=== PATIENT | male | born 2000 | race African-American/Black ===

== ENCOUNTER 2020-02-17 12:23 | Emergency (ER) | payer OTHER ==
[2020-02-17 12:29] VITALS: RESP 18
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
--- NOTE | 2020-02-17 14:34 | XR ---
EXAMINATION TYPE: XR knee complete LT DATE OF EXAM: 02/17/2020 COMPARISON: NONE HISTORY: Pain TECHNIQUE: 3 views FINDINGS: I see no fracture nor dislocation. Joint spaces are normal. There is no sign of knee joint effusion. IMPRESSION: Negative left knee exam.
--- NOTE | 2020-02-17 14:35 | XR ---
EXAMINATION TYPE: XR chest 1V DATE OF EXAM: 02/17/2020 COMPARISON: NONE HISTORY: Pain TECHNIQUE: Single view FINDINGS: Heart and mediastinum are normal. Lungs are clear. Diaphragm is normal. Bony thorax appears normal. IMPRESSION: Normal chest.
--- NOTE | 2020-02-17 14:36 | XR ---
EXAMINATION TYPE: XR pelvis AP view DATE OF EXAM: 02/17/2020 COMPARISON: NONE HISTORY: Pain TECHNIQUE: Single view FINDINGS: Pelvic ring is intact. Proximal femurs are intact. Sacroiliac joints are normal. IMPRESSION: Negative exam. No fracture.
[2020-02-17 15:22] VITALS: BP 123/73; PULSE 66; TEMP 98.6
== END 2020-02-17 15:22 | disposition home or self-care (01) ==
LOC: EC 12:23
DX: S80.02XA Contusion of left knee, initial encounter (principal); S13.9XXA Sprain of joints and ligaments of unspecified parts of neck, initial encounter; V89.2XXA Person injured in unspecified motor-vehicle accident, traffic, initial encounter; Y92.410 Unspecified street and highway as the place of occurrence of the external cause
CPT/HCPCS: 70450; 71045; 72125; 72170; 99285

== ENCOUNTER 2020-12-04 13:45 | Emergency (ER) | payer OTHER ==
[2020-12-04 13:48] VITALS: BP 130/74; PULSE 52; RESP 16; TEMP 97.7
[2020-12-04] MEDS ORDERED: ONDANSETRON 4 MG/2 ML VIAL IVP STA (14:05)
[2020-12-04] MEDS ORDERED: SODIUM CHLORIDE 0.9% 1,000 ML IV STA (14:05)
[2020-12-04] MEDS ORDERED: FAMOTIDINE 20 MG/2 ML VIAL IV STA (14:06)
--- NOTE | 2020-12-04 14:30 | ED ---
Nausea/Vomiting/Diarrhea HPI - General Chief complaint: Nausea/Vomiting/Diarrhea Stated complaint: NVD Time Seen by Provider: 12/04/20 13:50 Source: patient Mode of arrival: ambulatory Limitations: no limitations - History of Present Illness Initial comments: 20-year-old male presents to emergency department with a chief complaint of diarrhea. Patient reports this started 2 AM today. States last night he was out with a group of friends in a restaurant eating food that was not thoroughly cooked, particularly me. Patient reports he is reporting semi-formed stools, nonbloody. He denies any nausea or vomiting. Denies any abdominal pain. Denies any obstructive or infectious urinary symptoms. Denies any fevers or chills. States nobody else in the upper friends got sick yet. No recent antibodies. Diarrhea does not have a significantly foul smell. - Related Data Previous Rx's Medication Instructions Recorded Ibuprofen [Motrin] 600 mg PO Q8HR #60 tab 02/17/20 Loperamide HCl [Loperamide] 2 mg PO DAILY #7 capsule 12/04/20 Allergies Allergy/AdvReac Type Severity Reaction Status Date / Time No Known Allergies Allergy Verified 12/04/20 13:46 Review of Systems ROS Statement: Those systems with pertinent positive or pertinent negative responses have been documented in the HPI. ROS Other: All systems not noted in ROS Statement are negative. Past Medical History Past Medical History: No Reported History History of Any Multi-Drug Resistant Organisms: None Reported Past Surgical History: No Surgical Hx Reported Past Psychological History: No Psychological Hx Reported Smoking Status: Never smoker Past Alcohol Use History: None Reported Past Drug Use History: None Reported General Exam Limitations: no limitations General appearance: alert, in no apparent distress Head exam: Present: atraumatic, normocephalic, normal inspection Eye exam: Present: normal appearance, PERRL, EOMI Pupils: Present: normal accommodation ENT exam: Present: normal exam, normal oropharynx, mucous membranes moist Neck exam: Present: normal inspection, full ROM. Absent: tenderness Respiratory exam: Present: normal lung sounds bilaterally. Absent: respiratory distress Cardiovascular Exam: Present: regular rate, normal rhythm, normal heart sounds. Absent: systolic murmur GI/Abdominal exam: Present: soft. Absent: distended, tenderness, guarding Extremities exam: Present: normal inspection, full ROM, normal capillary refill. Absent: tenderness, pedal edema, joint swelling, calf tenderness Back exam: Present: normal inspection Neurological exam: Present: alert, oriented X3, CN II-XII intact Psychiatric exam: Present: normal affect, normal mood Skin exam: Present: warm, dry, intact, normal color. Absent: rash Course Vital Signs 12/04/20 13:46 Temperature 97.7 F Pulse Rate 52 L Respiratory 16 Rate Blood Pressure 130/74 O2 Sat by Pulse 99 Oximetry Medical Decision Making - Medical Decision Making 20-year-old male presents to emergency department with a chief complaint of diarrhea. On physical examination, no acute findings. Laboratory work is unremarkable. Patient likely developed diarrhea from eating uncooked food. I will prescribe him antidiarrheal medication. PCP follow-up. Strict return parameters were thoroughly discussed the patient is an ascending agreeable. Case discussed with physician. - Lab Data Result diagrams: 12/04/20 14:15 12/04/20 14:15 Lab Results 12/04/20 12/04/20 Range/Units 14:15 14:15 WBC 3.4 L (3.8-10.6) k/uL RBC 5.22 (4.30-5.90) m/uL Hgb 15.9 (13.0-17.5) gm/dL Hct 46.9 (39.0-53.0) % MCV 89.9 (80.0-100.0) fL MCH 30.5 (25.0-35.0) pg MCHC 33.9 (31.0-37.0) g/dL RDW 13.7 (11.5-15.5) % Plt Count 244 (150-450) k/uL MPV 8.6 Neutrophils % 38 % Lymphocytes % 49 % Monocytes % 8 % Eosinophils % 1 % Basophils % 1 % Neutrophils # 1.3 (1.3-7.7) k/uL Lymphocytes # 1.7 (1.0-4.8) k/uL Monocytes # 0.3 (0-1.0) k/uL Eosinophils # 0.0 (0-0.7) k/uL Basophils # 0.1 (0-0.2) k/uL Sodium 141 (137-145) mmol/L Potassium 4.1 (3.5-5.1) mmol/L Chloride 108 H (98-107) mmol/L Carbon Dioxide 24 (22-30) mmol/L Anion Gap 9 mmol/L BUN 14 (9-20) mg/dL Creatinine 0.98 (0.66-1.25) mg/dL Est GFR (CKD-EPI)AfAm >90 (>60 ml/min/1.73 sqM) Est GFR (CKD-EPI)NonAf >90 (>60 ml/min/1.73 sqM) Glucose 113 H (74-99) mg/dL Calcium 10.0 (8.4-10.2) mg/dL Total Bilirubin 0.7 (0.2-1.3) mg/dL AST 25 (17-59) U/L ALT 24 (4-49) U/L Alkaline Phosphatase 92 (38-126) U/L Total Protein 7.5 (6.3-8.2) g/dL Albumin 4.4 (3.5-5.0) g/dL Amylase 71 (30-110) U/L Lipase 18 L (23-300) U/L Disposition Clinical Impression: Diarrhea Disposition: HOME SELF-CARE Condition: Stable Instructions (If sedation given, give patient instructions): Acute Diarrhea (ED) Additional Instructions: Please return to the Emergency Department if symptoms worsen or any other concerns. Prescriptions: Loperamide HCl [Loperamide] 2 mg PO DAILY #7 capsule Is patient prescribed a controlled substance at d/c from ED?: No Referrals: Keri Meraz MD [Primary Care Provider] - 1-2 days Time of Disposition: 15:17
[2020-12-04 14:46] LABS: ALT 24 U/L (4-49); AST 25 U/L (17-59); African American GFR (CKD) >90 (>60 ml/min/1.73 sqM); Albumin 4.4 g/dL (3.5-5.0); Alkaline Phosphatase 92 U/L (38-126); Amylase 71 U/L (30-110); Anion Gap 9 mmol/L; Blood Urea Nitrogen 14 mg/dL (9-20); Carbon Dioxide 24 mmol/L (22-30); Chloride 108 mmol/L (98-107); Glucose 113 mg/dL (74-99); Lipase 18 U/L (23-300); Non-African American GFR(CKD) >90 (>60 ml/min/1.73 sqM); Potassium 4.1 mmol/L (3.5-5.1); Sodium 141 mmol/L (137-145); Total Bilirubin 0.7 mg/dL (0.2-1.3); Total Protein 7.5 g/dL (6.3-8.2)
[2020-12-04 14:54] LABS: Basophils # (A) 0.1 k/uL (0-0.2); Basophils % (A) 1 %; Eosinophils % (A) 1 %; HCT 46.9 % (39.0-53.0); HGB 15.9 gm/dL (13.0-17.5); Lymphocytes # (A) 1.7 k/uL (1.0-4.8); Lymphocytes % (A) 49 %; MCH 30.5 pg (25.0-35.0); MCHC 33.9 g/dL (31.0-37.0); MCV 89.9 fL (80.0-100.0); Mean Platelet Volume 8.6; Monocytes # (A) 0.3 k/uL (0-1.0); Monocytes % (A) 8 %; Neutrophils # (A) 1.3 k/uL (1.3-7.7); Neutrophils % (A) 38 %; Platelet Count 244 k/uL (150-450); RBC 5.22 m/uL (4.30-5.90); RDW 13.7 % (11.5-15.5); WBC 3.4 k/uL (3.8-10.6)
== END 2020-12-04 15:52 | disposition home or self-care (01) ==
LOC: EC 13:45
DX: R19.7 Diarrhea, unspecified (principal)
CPT/HCPCS: 36415; 80053; 82150; 83690; 85025; 99283; 96374; 96375; 96361; J2405

== ENCOUNTER 2023-09-10 20:48 | Emergency (ER) | payer BC, OTHER ==
[2023-09-10] MEDS: ACETAMINOPHEN TAB 325 MG TAB PO STA (21:17)
[2023-09-10 21:18] VITALS: RESP 16; TEMP 101.8
--- NOTE | 2023-09-10 21:47 | ED ---
ENT HPI - General Chief complaint: ENT Stated complaint: Fever, sore throat Time Seen by Provider: 09/10/23 21:46 Source: patient, RN notes reviewed Mode of arrival: ambulatory Limitations: no limitations - History of Present Illness Initial comments: 23-year-old male presenting to the ER with a chief complaint of sore throat and fever. He states this been going on for the past 3 to 4 days. He has been taking sszo-fly-ysrtwye Advil for fever relief. He states his fevers get as high as 104F. He denies any cough and reports mild congestion. Denies any shortness of breath or chest pain. No significant past medical history. No other complaints at this time. - Related Data Previous Rx's Medication Instructions Recorded Ibuprofen [Motrin] 600 mg PO Q8HR #60 tab 02/17/20 Loperamide HCl [Loperamide] 2 mg PO DAILY #7 capsule 12/04/20 Acetaminophen Tab [Tylenol] 325 mg PO Q6H #20 tab 09/10/23 Amoxicillin 500 mg PO Q12HR 10 Days #20 capsule 09/10/23 Ibuprofen [Motrin] 600 mg PO Q8HR PRN #20 tab 09/10/23 Allergies Allergy/AdvReac Type Severity Reaction Status Date / Time No Known Allergies Allergy Verified 12/04/20 13:46 Review of Systems ROS Statement: Those systems with pertinent positive or pertinent negative responses have been documented in the HPI. ROS Other: All systems not noted in ROS Statement are negative. Past Medical History Past Medical History: No Reported History History of Any Multi-Drug Resistant Organisms: None Reported Past Surgical History: No Surgical Hx Reported Past Psychological History: No Psychological Hx Reported Smoking Status: Never smoker Past Alcohol Use History: None Reported Past Drug Use History: None Reported General Exam Limitations: no limitations ENT exam: Present: mucous membranes moist, TM's normal bilaterally, other (Edematous and erythematous bilateral tonsils with white exudates bilaterally.) Neck exam: Present: normal inspection. Absent: tenderness, meningismus, lymphadenopathy Respiratory exam: Present: normal lung sounds bilaterally. Absent: respiratory distress, wheezes, rales, rhonchi, stridor Cardiovascular Exam: Present: regular rate, normal rhythm, normal heart sounds. Absent: systolic murmur, diastolic murmur, rubs, gallop, clicks Skin exam: Present: warm, dry, intact, normal color. Absent: rash Course Vital Signs 09/10/23 09/10/23 09/10/23 21:00 21:12 22:44 Temperature 98.8 F 101.8 F H Pulse Rate 84 71 Respiratory 16 16 Rate Blood Pressure 139/65 126/70 O2 Sat by Pulse 95 98 Oximetry Medical Decision Making - Medical Decision Making Was pt. sent in by a medical professional or institution (ROBERTO Comer, ADMINISTRATIVE HEARING OFFICER, urgent care, hospital, or penitentiary...) When possible be specific @ -No Did you speak to anyone other than the patient for history (EMS, parent, family, police, friend...)? What history was obtained from this source @ -No Did you review nursing and triage notes (agree or disagree)? Why? @ -I reviewed and agree with nursing and triage notes Were old charts reviewed (outside hosp., previous admission, EMS record, old EKG, old radiological studies, urgent care reports/EKG's, penitentiary records)? Report findings @ -No old charts were reviewed Differential Diagnosis (chest pain, altered mental status, abdominal pain women, abdominal pain men, vaginal bleeding, weakness, fever, dyspnea, syncope, headache, dizziness, GI bleed, back pain, seizure, CVA, palpatations, mental health, musculoskeletal)? @ -COVID, RSV, influenza, viral sinusitis, pneumonia this list is not meant to be all-inclusive EKG interpreted by me (3pts min.). @ -None X-rays interpreted by me (1pt min.). @ -None done CT interpreted by me (1pt min.). @ -None done U/S interpreted by me (1pt. min.). @ -None done What testing was considered but not performed or refused? (CT, X-rays, U/S, labs)? Why? @ -None What meds were considered but not given or refused? Why? @ -None Did you discuss the management of the patient with other professionals (professionals i.e. ROBERTO Comer, ADMINISTRATIVE HEARING OFFICER, lab, RT, psych nurse, social media content specialist, special delivery messenger, teacher, collections officer, home health care case manager)? Give summary @ -No Was smoking cessation discussed for >3mins.? @ -No Was critical care preformed (if so, how long)? @ -No Were there social determinants of health that impacted care today? How? (Homelessness, low income, unemployed, alcoholism, drug addiction, transportation, low edu. Level, literacy, decrease access to med. care, fci, rehab)? @ -No Was there de-escalation of care discussed even if they declined (Discuss DNR or withdrawal of care, Hospice)? DNR status @ -No What co-morbidities impacted this encounter? (DM, HTN, Smoking, COPD, CAD, Cancer, CVA, ARF, Chemo, Hep., AIDS, mental health diagnosis, sleep apnea, morbid obesity)? @ -None Was patient admitted / discharged? Hospital course, mention meds given and route, prescriptions, significant lab abnormalities, going to OR and other pertinent info. @ -Discharge. 23-year-old male presented to the ER with a chief complaint of sore throat and fever. History and physical exam completed. Vitals significant for a temperature of 101.8F. Vitals otherwise stable. Patient no signs of acute distress and nontoxic-appearing. Bilateral tonsils erythematous and edematous with white exudates present. Lung sounds clear to auscultation bilaterally. Strep, COVID, RSV, influenza negative. Patient received by mouth Tylenol for fever control in the ER. Due to physical exam findings and concern for strep pharyngitis, amoxicillin prescribed. First dose in the ER. I advised patient to continue alternating Tylenol and Motrin every 4-6 hours for fever control. Return parameters discussed. Patient discharged stable condition with follow-up to PCP. Patient verbally expressed understanding and agreement with care plan. Case discussed with ED attending, Dr. Atkinson. Undiagnosed new problem with uncertain prognosis? @ -No Drug Therapy requiring intensive monitoring for toxicity (Heparin, Nitro, Insulin, Cardizem)? @ -No Were any procedures done? @ -No Diagnosis/symptom? @ -Strep pharyngitis Acute, or Chronic, or Acute on Chronic? @ -Acute Uncomplicated (without systemic symptoms) or Complicated (systemic symptoms)? @ -Uncomplicated Side effects of treatment? @ -No Exacerbation, Progression, or Severe Exacerbation? @ -No Poses a threat to life or bodily function? How? (Chest pain, [place], [place], pneumonia, PE, COPD, DKA, ARF, appy, cholecystitis, CVA, Diverticulitis, Homicidal, Suicidal, threat to staff... and all critical care pts) @ -No - Lab Data Lab Results 05/11/24 05/11/24 Range/Units 21:10 21:10 Influenza Type A (PCR) Not Detected (Not Detectd) Influenza Type B (PCR) Not Detected (Not Detectd) RSV (PCR) Not Detected (Not Detectd) SARS-CoV-2 (PCR) Not Detected (Not Detectd) Group A Strep (PCR) NOT DETECTED (Not Detectd) Disposition Clinical Impression: Strep pharyngitis Disposition: HOME SELF-CARE Condition: Stable Instructions (If sedation given, give patient instructions): Strep Throat (DC), Fever in Adults (ED) Additional Instructions: Complete full course of amoxicillin. You may alternate Tylenol and Motrin every 4-6 hours for fever control. Follow-up with PCP. Return to the ER for any new or worsening concerns. Prescriptions: Amoxicillin 500 mg PO Q12HR 10 Days #20 capsule Ibuprofen [Motrin] 600 mg PO Q8HR PRN #20 tab PRN Reason: Pain Acetaminophen Tab [Tylenol] 325 mg PO Q6H #20 tab Is patient prescribed a controlled substance at d/c from ED?: No Referrals: None,Stated [Primary Care Provider] - 1-2 days Forms: Area PCPs Time of Disposition: 22:36
[2023-09-10] MEDS: AMOXICILLIN 500 MG CAP PO STA (22:44)
[2023-09-10 23:21] VITALS: BP 126/70; PULSE 71
== END 2023-09-10 22:44 | disposition home or self-care (01) ==
LOC: EC 20:48
DX: J02.0 Streptococcal pharyngitis (principal)
CPT/HCPCS: 87636; 87651; 99283